=== PATIENT | male | born 1995 | race African-American/Black ===

== ENCOUNTER 2018-10-18 21:51 | Inpatient (IN) | payer OTHER ==
[~2018-10-18] VITALS: Ht 180.3 cm; Wt 95.9 kg
--- NOTE | 2018-10-18 22:25 | NUR ---
URINE CUP GIVEN ALONG WITH [employer] FOR CLEAN CATCH.
--- NOTE | 2018-10-18 22:52 | NUR ---
URINE COLLECTED, LABELED WITH PT, AND SENT TO LAB. PT. REMAINS IN LOBBY AT THIS TIME. NADN. SKIN PWD, RESP EVEN AND NON-LABORED.
[2018-10-18 23:07] LABS: MICROSCOPIC INDICATED
--- NOTE | 2018-10-18 23:29 | NUR ---
PT STATES C/O N/Vx3 DAYS AND LIMITED PO INTAKE. STATES NOT ABLE TO TOLERATE PO FOOD INTAKE, BUT MINIMAL WATER INTAKE TOLERABLE. UNSURE IF FEVERS. STATES DIFFUSE ABD PAIN AND "CONGESTION IN MY CHEST, ESPECIALLY WHEN I COUGH." PT MILDLY TACHYCARDIC IN ED. MD AWARE. ALL MONITORING APPLIED. VSS. CALL LIGHT WITHIN REACH. AWAITING FURTHER ORDRS.
[2018-10-18] MEDS ORDERED: MAALOX/HYOSCYAMINE/LIDOCAINE 45 ML BTL ONE (23:53)
[2018-10-18] MEDS ORDERED: FAMOTIDINE 20 MG/2 ML ONE (23:53)
[2018-10-18] MEDS ORDERED: ONDANSETRON 2MG/ML, 2ML ONE (23:53)
[2018-10-19] MEDS ORDERED: FAMOTIDINE 20 MG/2 ML IVP ONE
[2018-10-19] MEDS ORDERED: SODIUM CHLORIDE FLUSH 10ML SYR IVF ONE
[2018-10-19] MEDS ORDERED: MAALOX/HYOSCYAMINE/LIDOCAINE 45 ML BTL PO ONE
[2018-10-19] MEDS ORDERED: SODIUM CHLORIDE 0.9% 1,000ML IVBOLUS ONE
[2018-10-19] MEDS ORDERED: ONDANSETRON 2MG/ML, 2ML IVPush ONE
[2018-10-19 00:13] LABS: ALBUMIN 4.7 g/dL (3.4-5.0); ANION GAP 13 mmol/L (5-15); CALCIUM 9.4 mg/dL (8.5-10.1); CHLORIDE 94 mmol/L (98-107)
[2018-10-19 00:16] LABS: BASOPHILS # (AUTO) 0.08 x10^3/uL (0-0.1); BASOPHILS % (AUTO) 0 % (0-1); EOSINOPHILS # (AUTO) 0.02 x10^3/uL (0-0.4); EOSINOPHILS % (AUTO) 0 % (1-7); LYMPHOCYTES # (AUTO) 1.38 x10^3/uL (1-3.4); LYMPHOCYTES % (AUTO) 8 % (22-44); MD SCAN; MEAN CORPUSCULAR HEMOGLOBIN 27.3 pg (27.5-34.5); MEAN CORPUSCULAR VOLUME 80.2 fL (81-97); MEAN PLATELET VOLUME 11.7 fL (7.4-10.4); MONOCYTES # (AUTO) 1.11 x10^3/uL (0.2-0.8); MONOCYTES % (AUTO) 6 % (2-9); NEUTROPHILS # (AUTO) 14.79 x10^3/uL (1.8-6.8); NEUTROPHILS % (AUTO) 85 % (42-75); PLATELET COUNT 260 x10^3/uL (130-400); RED BLOOD COUNT 6.82 x10^6/uL (4.38-5.82); RED CELL DISTRIBUTION WIDTH 13.1 % (9.4-14.8)
[2018-10-19 00:18] LABS: ALANINE AMINOTRANSFERASE 42 U/L (12-78); ALKALINE PHOSPHATASE 121 U/L (45-117); CREATININE 2.65 mg/dL (0.7-1.3); TOTAL PROTEIN 10.1 g/dL (6.4-8.2)
--- NOTE | 2018-10-19 01:38 | NUR ---
MD ASKED ABOUT BLOOD CULTURES AND ABX AT THIS TIME. AWAITING NEW ORDERS.
--- NOTE | 2018-10-19 02:37 | NUR ---
PT RESTING COMFORTABLY ON GURNEY. RR EVEN AND UNLABORED. NADN. CALL LIGHT WITHIN REACH. AWAITING ADM BED UPSTAIRS.
--- NOTE | 2018-10-19 03:30 | NUR ---
PT D/C FROM VITALS AND ASSISTED TO RR. NO OTHER IMMEDIATE NEEDS AT THIS TIME. CALL LIGHT WITHIN REACH.
--- NOTE | 2018-10-19 04:27 | NUR ---
TASK RN: PT. MOTHER(VIRGEN) CALLED TO ASK ABOUT HER SON ADMISSION TO HOSPITAL. SPOKE WITH PT. HE WANT'S THIS RN TO LET HIS MOTHER KNOW HE IS STABLE BUT DOESN'T WANT HER TO KNOW ANY DETAILS ABOUT ADMISSION "I DON'T WANT HER TO PANIC". MOTHER OFFERED REASSURANCE VIA PHONE THAT SON IS IN STABLE CONDITION AT THIS TIME. NO FURTHER INFO GIVEN.
--- NOTE | 2018-10-19 04:47 | NUR ---
PT REPOSITIONED ON SAMY W/ HELP OF STAFF. NO OTHER IMMEDIATE NEEDS BY PT. CALL LIGHT WITHIN REACH.
[2018-10-19] MEDS ORDERED: HEPARIN 5,000 UNITS/ML, 1ML ONE (04:54)
[2018-10-19] MEDS ORDERED: GABAPENTIN 300 MG CAPSULE PO PRN (05:00)
[2018-10-19] MEDS ORDERED: DOCUSATE 100 MG CAPSULE PO PRN (05:00)
[2018-10-19] MEDS ORDERED: POLYETHYLENE GLYCOL 17 GM PACKET PO PRN (05:00)
[2018-10-19] MEDS ORDERED: ONDANSETRON ODT 4 MG PO PRN (05:00)
[2018-10-19] MEDS ORDERED: PROMETHAZINE 25 MG/ML, 1ML IM PRN (05:00)
[2018-10-19] MEDS ORDERED: OXYcodone IR 5MG TABLET PO PRN (05:00)
[2018-10-19] MEDS ORDERED: morphine SULFATE 10 MG/ML, 1ML IVPush PRN (05:00)
[2018-10-19] MEDS ORDERED: hydrALAzine 20 MG/ML, 1ML IVPush PRN (05:00)
[2018-10-19] MEDS ORDERED: LABETALOL 5MG/ML, 20ML IVPush PRN (05:00)
[2018-10-19] MEDS ORDERED: BISACODYL 10 MG SUPP PR PRN (05:00)
[2018-10-19 05:07] LABS: FREE T4 (FREE THYROXINE) 1.18 ng/dL (0.76-1.46); THYROID STIMULATING HORMONE 0.729 mIU/L (0.358-3.740)
[2018-10-19] MEDS: D5%-0.9% NACL+KCL 20MEQ 1,000 ML IV SCH ×3 (05:15→22:10)
[2018-10-19] MEDS: HEPARIN 5,000 UNITS/ML, 1ML SQ SCH ×3 (05:15→21:35)
--- NOTE | 2018-10-19 06:26 | NUR ---
PT RESTING COMFORTABLY ON GURNEY. RR EVEN AND UNLABORED. NADN. CALL LIGHT WITHIN REACH. AWAITING ADM BED UPSTAIRS.
--- NOTE | 2018-10-19 06:59 | NUR ---
Recieved bedside report from PATRICIA Shelley. All questions answered. NADN. Pt has call light within reach. Meal tray ordered and will be given to pt when it arrives. No needs expressed at this time. Pt sleeping on gurney with IV fluids infusing per EMAR.
--- NOTE | 2018-10-19 08:07 | NUR ---
Attempted to call floor to give report for pt to go to room 301. PATRICIA Loya unavailable at this time. PATRICIA Loya will call ED to get report.
--- NOTE | 2018-10-19 08:31 | NUR ---
Provided report to PATRICIA Loya. All questions answered. Pt ready to transfer to floor to room 309.
--- NOTE | 2018-10-19 08:44 | NUR ---
PIV FLUIDS INFUSING PER EMAR UPON TRANSFER FROM ED TO FLOOR.
[2018-10-19 09:28] VITALS: BP 129/94
[2018-10-19] MEDS: ONDANSETRON 2MG/ML, 2ML IVPush PRN ×3 (09:42→22:15)
[2018-10-19 11:06] LABS: MEAN CORPUSCULAR HEMOGLOBIN 27.4 pg (27.5-34.5); MEAN CORPUSCULAR HGB CONC 33.8 g/dL (33.2-36.2); MEAN PLATELET VOLUME 10.3 fL (7.4-10.4); PLATELET COUNT 225 x10^3/uL (130-400); RED BLOOD COUNT 5.78 x10^6/uL (4.38-5.82); RED CELL DISTRIBUTION WIDTH 13.4 % (9.4-14.8)
[2018-10-19 11:10] LABS: ALBUMIN 3.7 g/dL (3.4-5.0); ANION GAP 6 mmol/L (5-15); CALCIUM 8.6 mg/dL (8.5-10.1); CHLORIDE 106 mmol/L (98-107)
[2018-10-19 11:15] LABS: ALANINE AMINOTRANSFERASE 34 U/L (12-78); ALKALINE PHOSPHATASE 91 U/L (45-117); BILIRUBIN,TOTAL 1.9 mg/dL (0.2-1.0); CREATININE 1.32 mg/dL (0.7-1.3)
[2018-10-19 11:39] LABS: MD YES
[2018-10-19 11:40] LABS: BAND#(MANUAL) 0.36 x10^3/uL; BANDS%(MANUAL) 3 % (0-7); LYMPH#(MANUAL) 1.44 x10^3/uL (1-3.4); LYMPHS% (MANUAL) 12 % (22-44); MONOS#(MANUAL) 1.56 x10^3/uL (0.3-2.7); MONOS% (MANUAL) 13 % (2-9); SEG#(MANUAL) 8.64 x10^3/uL (1.8-6.8); SEGS% (MANUAL) 72 % (42-75)
[2018-10-19 11:41] LABS: <PLATELET ESTIMATE> ADEQUATE; <PLT MORPHOLOGY> NORMAL PLT MORPH; <RBC MORPHOLOGY> NORMAL
[2018-10-19 14:16] VITALS: BP 135/86
[2018-10-19 19:20] VITALS: BP 103/64
[2018-10-20 02:02] VITALS: BP 99/66
[2018-10-20] MEDS: HEPARIN 5,000 UNITS/ML, 1ML SQ SCH ×2 (05:23→13:01)
[2018-10-20 06:41] LABS: CHLORIDE 110 mmol/L (98-107)
[2018-10-20 06:48] LABS: BASOPHILS # (AUTO) 0.03 x10^3/uL (0-0.1); BASOPHILS % (AUTO) 0 % (0-1); EOSINOPHILS # (AUTO) 0.05 x10^3/uL (0-0.4); EOSINOPHILS % (AUTO) 1 % (1-7); LYMPHOCYTES # (AUTO) 1.65 x10^3/uL (1-3.4); LYMPHOCYTES % (AUTO) 26 % (22-44); MD NO; MEAN CORPUSCULAR HEMOGLOBIN 27.5 pg (27.5-34.5); MEAN CORPUSCULAR HGB CONC 33.7 g/dL (33.2-36.2); MEAN CORPUSCULAR VOLUME 81.6 fL (81-97); MEAN PLATELET VOLUME 9.8 fL (7.4-10.4); MONOCYTES # (AUTO) 1.14 x10^3/uL (0.2-0.8); MONOCYTES % (AUTO) 18 % (2-9); NEUTROPHILS # (AUTO) 3.61 x10^3/uL (1.8-6.8); NEUTROPHILS % (AUTO) 56 % (42-75); PLATELET COUNT 173 x10^3/uL (130-400); RED BLOOD COUNT 5.09 x10^6/uL (4.38-5.82); RED CELL DISTRIBUTION WIDTH 13.7 % (9.4-14.8)
[2018-10-20 06:56] LABS: ALANINE AMINOTRANSFERASE 33 U/L (12-78); ALBUMIN 2.9 g/dL (3.4-5.0); ALKALINE PHOSPHATASE 77 U/L (45-117); ANION GAP 6 mmol/L (5-15); BILIRUBIN,TOTAL 1.4 mg/dL (0.2-1.0); CHOL/HDL RATIO 2.9; CHOLESTEROL, TOTAL 137 mg/dL (140-239); CREATININE 1.06 mg/dL (0.7-1.3); HDL CHOL % 34 % (26-37); HDL CHOLESTEROL (DIRECT) 47 mg/dL (40-60); LDL CHOLESTEROL,CALCULATED 78 mg/dL (54-169); LDL/HDL RATIO 1.7 (0.5-3.0); TOTAL PROTEIN 6.5 g/dL (6.4-8.2); TRIGLYCERIDES 60 mg/dL (50-200); VLDL CHOLESTEROL 12 mg/dL (0-25)
[2018-10-20 07:53] VITALS: BP 129/30
== END 2018-10-20 13:15 | disposition home or self-care (01) | DRG 683 ==
LOC: ED 10-19 01:30 → EDIP 10-19 01:39 → 3WST 10-19 09:05
PROVIDERS: ADMIT Internal Medicine; ATTEND Internal Medicine
DX: N17.0 Acute kidney failure with tubular necrosis (principal); E87.1 Hypo-osmolality and hyponatremia; E87.2 Acidosis; F12.90 Cannabis use, unspecified, uncomplicated; D72.829 Elevated white blood cell count, unspecified; E86.0 Dehydration; E87.6 Hypokalemia
CPT/HCPCS: 36415; 74021; 99285; J3490; 74176; 80053; 80061; 81001; 83036; 83690; 83735; 84439; 84443; 85025; 87040; 96374; 96375; G0378; J1644; J2405; J3480; J7030